=== PATIENT | female | born 1945 | race Caucasian/White ===

== ENCOUNTER → 2023-01-10 | Day surgery (SDC) | payer OTHER | END | disposition home or self-care (01) | LOC: JRADUS-SUR 11:42 | PROVIDERS: ATTEND Internal Medicine | PROC: 0HBU3ZX Excision of Left Breast, Percutaneous Approach, Diagnostic (ICD-10-PCS; principal; 2023-01-10) | DX: C50.912 Malignant neoplasm of unspecified site of left female breast (principal) | CPT/HCPCS: 19083; 77065-TC; 87899; 88305-TC; 88341-TC; 88342-TC; A4648 ==

== ENCOUNTER 2023-03-08 04:40 | Day surgery (SDC) | payer OTHER ==
[2023-03-08 09:00] VITALS: BMI 33.8
[2023-03-08 10:11] LABS: INR 1.1 (0.83-1.09); PROTHROMBIN TIME (PATIENT) 12.8 SEC (9.7-13.0)
[2023-03-08] MEDS ORDERED: SODIUM CHLORIDE 500 ML IV ONE (10:45)
[2023-03-08] MEDS ORDERED: FENTANYL CITRATE/PF 50 MCG/ML VIAL ONE (11:09)
[2023-03-08 12:54] VITALS: RESP 18
[2023-03-08 13:44] VITALS: BP 136/58; PULSE 82; TEMP 98.2
== END 2023-03-08 13:40 ==
LOC: JRADIR 04:40
PROVIDERS: ATTEND Internal Medicine Hematology & Oncology
PROC: 0JH63XZ Insertion of Tunneled Vascular Access Device into Chest Subcutaneous Tissue and Fascia, Percutaneous Approach (ICD-10-PCS; principal; 2023-03-08)
DX: C50.912 Malignant neoplasm of unspecified site of left female breast (principal)
CPT/HCPCS: 36571; C1788; 36415; 36561; 77001-TC-FY; 85610

== ENCOUNTER 2023-03-08 08:26 | Day surgery (SDC) | payer OTHER ==
[~2023-03-08 08:26] MED LIST: CYCLOPHOSPHAMIDE IVPB ONE; DEXAMETHASONE SODIUM PHOSPHATE 10 MG, DIPHENHYDRAMINE 25 MG in SODIUM CHLORIDE 100 ML IVPB ONE; FAMOTIDINE 20 MG/50 ML IVPB 20 MG/50 ML MG IVPB ONE; FOSAPREPITANT DIMEGLUMINE 150 MG in SODIUM CHLORIDE 145 ML IVPB ONE; PACLITAXEL 150 MG in SODIUM CHLORIDE 250 ML IVPB ONE; PALONOSETRON HCL 0.25 MG/5 ML VIAL IVPUSH ONE; PEMBROLIZUMAB 200 MG in SODIUM CHLORIDE 100 ML IV ONE; SODIUM CHLORIDE IVPB ONE
[2023-03-08 09:55] LABS: EPI CELLS 14 /uL (0-25.1); HYALINE CASTS 0 /uL (0-3.1); PH,URINE 5.5 (5.0-8.0); URINE APPEARANCE CLEAR; URINE BACTERIA 66 /uL (0-1359); URINE BILIRUBIN NEGATIVE (NEGATIVE); URINE COLOR YELLOW; URINE GLUCOSE (UA) NEGATIVE (NEGATIVE); URINE KETONE NEGATIVE (NEGATIVE); URINE LEUK ESTERASE NEGATIVE (NEGATIVE); URINE NITRITE NEGATIVE (NEGATIVE); URINE PROTEIN NEGATIVE (NEGATIVE); URINE RBC 29 /uL (0-23.9); URINE UROBILINOGEN 0.2 mg/dL (0.2-1.0); URINE WBC 6 /uL (0-25.8)
[2023-03-08] MEDS ORDERED: FAMOTIDINE 20 MG/50 ML IVPB 20 MG/50 ML MG IVPB ONE (10:00)
[2023-03-08] MEDS ORDERED: PALONOSETRON HCL 0.25 MG/5 ML VIAL IVPUSH ONE (10:00)
[2023-03-08] MEDS ORDERED: DEXAMETHASONE SODIUM PHOSPHATE 10 MG, DIPHENHYDRAMINE 25 MG in SODIUM CHLORIDE 100 ML IVPB ONE (10:00)
[2023-03-08] MEDS ORDERED: FOSAPREPITANT DIMEGLUMINE 150 MG in SODIUM CHLORIDE 145 ML IVPB ONE (10:00)
[2023-03-08 10:02] LABS: EOS % 5.7 % (0-4.5); HEMATOCRIT 36.6 % (32.4-45.2); HEMOGLOBIN 11.9 GM/dL (10.7-15.3); LYMPH % 35.8 % (8-40); MCHC 32.4 g/dl (32.0-36.0); MEAN CELL VOLUME 92.5 fl (80-96); MEAN PLT VOLUME 9.9 fl (7.5-11.1); MONO % 9.6 % (3.8-10.2); NEUT % 47.9 % (42.8-82.8); PLATELET COUNT 247 10^3/uL (134-434); RBC 3.96 M/mm3 (3.60-5.2); RDW 14.7 % (11.6-15.6); WHITE BLOOD COUNT 6.9 K/mm3 (4.0-10.0)
[2023-03-08 10:03] LABS: POTASSIUM 4.3 mmol/L (3.5-5.1)
[2023-03-08 10:05] LABS: ALBUMIN 3.4 g/dl (3.4-5.0); CALCIUM 9.5 mg/dL (8.5-10.1)
[2023-03-08 10:06] LABS: BLOOD UREA NITROGEN 12.3 mg/dL (7-18); MAGNESIUM 2.1 mg/dL (1.8-2.4)
[2023-03-08 10:08] LABS: BILIRUBIN,DIRECT 0.2 mg/dL (0.0-0.2); CREATININE 0.9 mg/dL (0.55-1.3)
[2023-03-08 10:09] LABS: PHOSPHOROUS 2.8 mg/dL (2.5-4.9)
[2023-03-08 10:10] LABS: BILIRUBIN,TOTAL 0.6 mg/dL (0.2-1); TOT PROT 7.9 g/dl (6.4-8.2)
[2023-03-08] MEDS ORDERED: PEMBROLIZUMAB 200 MG in SODIUM CHLORIDE 100 ML IV ONE (10:30)
[2023-03-08] MEDS ORDERED: PACLITAXEL 150 MG in SODIUM CHLORIDE 250 ML IVPB ONE (11:00)
[2023-03-08] MEDS ORDERED: DEXTROSE 5% IVPB ONE (13:00)
[2023-03-08] MEDS ORDERED: WATER IVPB ONE (13:00)
[2023-03-08] MEDS ORDERED: CARBOPLATIN IVPB ONE (13:00)
[2023-03-08 18:22] VITALS: RESP 20; TEMP 98.1
[2023-03-08] MEDS ORDERED: PORTA CATH FLUSH 10 ML IVPUSH PRN (18:30)
[2023-03-08 18:31] VITALS: BP 171/74; PULSE 62
== END 2023-03-08 18:10 | disposition home or self-care (01) ==
LOC: JONCCHEMO 08:26 → J7W 08:28 → JONCCHEMO 18:10
PROVIDERS: ATTEND Internal Medicine Hematology & Oncology
DX: Z51.11 Encounter for antineoplastic chemotherapy (principal); C50.912 Malignant neoplasm of unspecified site of left female breast
CPT/HCPCS: 36415; 80048; 80076; 81003; 83615; 83735; 84100; 84439; 84443; 84481; 85025; 96367; 96375; 96413; 96417; J1453; J2469; J9271

== ENCOUNTER 2023-03-15 08:22 | Day surgery (SDC) | payer OTHER ==
[2023-03-15 09:13] LABS: BASO % 0.8 % (0-2.0); EOS % 6.2 % (0-4.5); HEMOGLOBIN 11.7 GM/dL (10.7-15.3); LYMPH % 41.1 % (8-40); MCH 29.5 pg (25.7-33.7); MCHC 32.5 g/dl (32.0-36.0); MEAN CELL VOLUME 90.8 fl (80-96); MONO % 4.7 % (3.8-10.2); NEUT % 47.2 % (42.8-82.8); PLATELET COUNT 223 10^3/uL (134-434); RBC 3.97 M/mm3 (3.60-5.2); RDW 14.5 % (11.6-15.6); WHITE BLOOD COUNT 5.7 K/mm3 (4.0-10.0)
[2023-03-15 09:25] LABS: POTASSIUM 4.5 mmol/L (3.5-5.1)
[2023-03-15 09:28] LABS: ALBUMIN 3.5 g/dl (3.4-5.0); CALCIUM 9.7 mg/dL (8.5-10.1)
[2023-03-15 09:29] LABS: BLOOD UREA NITROGEN 12.5 mg/dL (7-18)
[2023-03-15 09:31] LABS: BILIRUBIN,DIRECT 0.2 mg/dL (0.0-0.2); CREATININE 0.8 mg/dL (0.55-1.3)
[2023-03-15 09:33] LABS: TOT PROT 7.8 g/dl (6.4-8.2)
[2023-03-15] MEDS ORDERED: DEXAMETHASONE SODIUM PHOSPHATE 4 MG, DIPHENHYDRAMINE 25 MG in SODIUM CHLORIDE 100 ML IVPB ONE (10:00)
[2023-03-15] MEDS ORDERED: FAMOTIDINE 20 MG/50 ML IVPB 20 MG/50 ML MG IVPB ONE (10:00)
[2023-03-15] MEDS ORDERED: PACLITAXEL 150 MG in SODIUM CHLORIDE 250 ML IVPB ONE (10:30)
[2023-03-15] MEDS ORDERED: DEXTROSE 5% IVPB ONE (11:30)
[2023-03-15] MEDS ORDERED: WATER IVPB ONE (11:30)
[2023-03-15] MEDS ORDERED: CARBOPLATIN IVPB ONE (11:30)
[2023-03-15 17:02] VITALS: BP 164/67; PULSE 76; RESP 20; TEMP 98.7
[2023-03-15] MEDS ORDERED: PORTA CATH FLUSH 10 ML IVPUSH PRN (17:05)
== END 2023-03-15 13:05 | disposition home or self-care (01) ==
LOC: J7W 08:22 → JONCCHEMO 08:22
PROVIDERS: ATTEND Internal Medicine Hematology & Oncology
PROC: XW0 New Technology, Anatomical Regions, Introduction (ICD-10-PCS; principal; 2023-03-15)
PROC: 3E04305 Introduction of Other Antineoplastic into Central Vein, Percutaneous Approach (ICD-10-PCS; 2023-03-15)
DX: Z51.11 Encounter for antineoplastic chemotherapy (principal); C50.912 Malignant neoplasm of unspecified site of left female breast
CPT/HCPCS: 36415; 80048; 80076; 85025; 96367; 96413; 96417

== ENCOUNTER 2023-03-22 08:36 | Day surgery (SDC) | payer OTHER ==
[2023-03-22 09:01] LABS: BASO % 1.3 % (0-2.0); EOS % 3.9 % (0-4.5); HEMATOCRIT 34.6 % (32.4-45.2); HEMOGLOBIN 11.1 GM/dL (10.7-15.3); LYMPH % 47.2 % (8-40); MCH 29.2 pg (25.7-33.7); MEAN CELL VOLUME 91.3 fl (80-96); MEAN PLT VOLUME 9.2 fl (7.5-11.1); MONO % 7.9 % (3.8-10.2); NEUT % 39.7 % (42.8-82.8); PLATELET COUNT 264 10^3/uL (134-434); RBC 3.79 M/mm3 (3.60-5.2); RDW 14.7 % (11.6-15.6); WHITE BLOOD COUNT 4.6 K/mm3 (4.0-10.0)
[2023-03-22 09:28] LABS: POTASSIUM 4.1 mmol/L (3.5-5.1)
[2023-03-22 09:29] LABS: ALBUMIN 3.4 g/dl (3.4-5.0); CALCIUM 9.5 mg/dL (8.5-10.1)
[2023-03-22 09:33] LABS: BILIRUBIN,DIRECT 0.2 mg/dL (0.0-0.2); CREATININE 0.9 mg/dL (0.55-1.3)
[2023-03-22 09:35] LABS: BILIRUBIN,TOTAL 0.5 mg/dL (0.2-1); TOT PROT 7.5 g/dl (6.4-8.2)
[2023-03-22] MEDS ORDERED: DEXAMETHASONE SODIUM PHOSPHATE 4 MG, DIPHENHYDRAMINE 25 MG in SODIUM CHLORIDE 100 ML IVPB ONE (10:00)
[2023-03-22] MEDS ORDERED: FAMOTIDINE 20 MG/50 ML IVPB 20 MG/50 ML MG IVPB ONE (10:00)
[2023-03-22] MEDS ORDERED: PACLITAXEL 150 MG in SODIUM CHLORIDE 250 ML IVPB ONE (10:30)
[2023-03-22] MEDS ORDERED: DEXTROSE 5% IVPB ONE (11:30)
[2023-03-22] MEDS ORDERED: CARBOPLATIN IVPB ONE (11:30)
[2023-03-22] MEDS ORDERED: WATER IVPB ONE (11:30)
[2023-03-22 16:57] VITALS: RESP 18; TEMP 98.6
[2023-03-22] MEDS ORDERED: PORTA CATH FLUSH 10 ML IVPUSH PRN (17:11)
[2023-03-22 17:12] VITALS: BP 143/53; PULSE 77
== END 2023-03-22 14:00 | disposition home or self-care (01) ==
LOC: JONCCHEMO 08:36 → J7W 08:36 → JONCCHEMO 14:00
PROVIDERS: ATTEND Internal Medicine Hematology & Oncology
DX: Z51.11 Encounter for antineoplastic chemotherapy (principal); C50.912 Malignant neoplasm of unspecified site of left female breast
CPT/HCPCS: 36415; 80048; 80076; 85025; 96367; 96413; 96417

== ENCOUNTER 2023-03-29 08:20 | Day surgery (SDC) | payer OTHER ==
[2023-03-29 09:09] LABS: BASO % 1.3 % (0-2.0); EOS % 3.2 % (0-4.5); HEMATOCRIT 32.6 % (32.4-45.2); HEMOGLOBIN 10.8 GM/dL (10.7-15.3); LYMPH % 51.2 % (8-40); MCH 29.6 pg (25.7-33.7); MCHC 33.1 g/dl (32.0-36.0); MEAN CELL VOLUME 89.5 fl (80-96); MONO % 6.6 % (3.8-10.2); NEUT % 37.7 % (42.8-82.8); PLATELET COUNT 240 10^3/uL (134-434); RBC 3.64 M/mm3 (3.60-5.2); RDW 14.9 % (11.6-15.6); WHITE BLOOD COUNT 4.1 K/mm3 (4.0-10.0)
[2023-03-29] MEDS ORDERED: FAMOTIDINE 20 MG/50 ML IVPB 20 MG/50 ML MG IVPB ONE (09:30)
[2023-03-29] MEDS ORDERED: DEXAMETHASONE SODIUM PHOSPHATE 10 MG, DIPHENHYDRAMINE 25 MG in SODIUM CHLORIDE 100 ML IVPB ONE (09:30)
[2023-03-29] MEDS ORDERED: PALONOSETRON HCL 0.25 MG/5 ML VIAL IVPUSH ONE (09:30)
[2023-03-29] MEDS ORDERED: FOSAPREPITANT DIMEGLUMINE 150 MG in SODIUM CHLORIDE 145 ML IVPB ONE (09:30)
[2023-03-29 09:32] LABS: POTASSIUM 4.8 mmol/L (3.5-5.1)
[2023-03-29 09:35] LABS: ALBUMIN 3.4 g/dl (3.4-5.0); BLOOD UREA NITROGEN 9.8 mg/dL (7-18); CALCIUM 9.3 mg/dL (8.5-10.1); MAGNESIUM 1.9 mg/dL (1.8-2.4)
[2023-03-29 09:36] LABS: URINE APPEARANCE CLEAR; URINE BILIRUBIN NEGATIVE (NEGATIVE); URINE COLOR YELLOW; URINE GLUCOSE (UA) NEGATIVE (NEGATIVE); URINE KETONE NEGATIVE (NEGATIVE); URINE LEUK ESTERASE NEGATIVE (NEGATIVE); URINE NITRITE NEGATIVE (NEGATIVE); URINE PROTEIN NEGATIVE (NEGATIVE); URINE UROBILINOGEN 0.2 mg/dL (0.2-1.0)
[2023-03-29 09:38] LABS: BILIRUBIN,DIRECT 0.1 mg/dL (0.0-0.2); CREATININE 0.9 mg/dL (0.55-1.3); PHOSPHOROUS 2.6 mg/dL (2.5-4.9)
[2023-03-29 09:40] LABS: BILIRUBIN,TOTAL 0.4 mg/dL (0.2-1); TOT PROT 7.2 g/dl (6.4-8.2)
[2023-03-29] MEDS ORDERED: PEMBROLIZUMAB 200 MG in SODIUM CHLORIDE 100 ML IV ONE (10:00)
[2023-03-29] MEDS ORDERED: PACLITAXEL 150 MG in SODIUM CHLORIDE 250 ML IVPB ONE (10:30)
[2023-03-29] MEDS ORDERED: DEXTROSE 5% IVPB ONE (11:30)
[2023-03-29] MEDS ORDERED: CARBOplatin 135 MG in SODIUM CHLORIDE 250 ML IVPB ONE (11:30)
[2023-03-29] MEDS ORDERED: CARBOPLATIN IVPB ONE (11:30)
[2023-03-29] MEDS ORDERED: WATER IVPB ONE (11:30)
[2023-03-29 15:49] VITALS: BP 143/62; PULSE 78; RESP 18; TEMP 98.5
[2023-03-29] MEDS ORDERED: PORTA CATH FLUSH 10 ML IVPUSH PRN (15:49)
== END 2023-03-29 15:51 | disposition home or self-care (01) ==
LOC: JONCCHEMO 08:20 → J7W 08:21 → JONCCHEMO 15:51
PROVIDERS: ATTEND Internal Medicine Hematology & Oncology
DX: Z51.11 Encounter for antineoplastic chemotherapy (principal); C50.912 Malignant neoplasm of unspecified site of left female breast
CPT/HCPCS: 36415; 80048; 80076; 81003; 83615; 83735; 84100; 84439; 84443; 84481; 85025; 96367; 96375; 96413; 96417; J1453; J2469; J9271

== ENCOUNTER 2023-04-05 09:02 | Day surgery (SDC) | payer OTHER ==
[2023-04-05 09:06] LABS: BASO % 1.3 % (0-2.0); EOS % 2.3 % (0-4.5); HEMATOCRIT 33.6 % (32.4-45.2); HEMOGLOBIN 10.8 GM/dL (10.7-15.3); LYMPH % 52.5 % (8-40); MCH 29.5 pg (25.7-33.7); MCHC 32.2 g/dl (32.0-36.0); MEAN CELL VOLUME 91.6 fl (80-96); MEAN PLT VOLUME 9.5 fl (7.5-11.1); NEUT % 35.9 % (42.8-82.8); PLATELET COUNT 257 10^3/uL (134-434); RBC 3.67 M/mm3 (3.60-5.2); WHITE BLOOD COUNT 4.2 K/mm3 (4.0-10.0)
[2023-04-05 09:15] LABS: POTASSIUM 4.3 mmol/L (3.5-5.1)
[2023-04-05 09:17] LABS: CALCIUM 9.5 mg/dL (8.5-10.1)
[2023-04-05 09:18] LABS: ALBUMIN 3.3 g/dl (3.4-5.0); BLOOD UREA NITROGEN 8.6 mg/dL (7-18)
[2023-04-05 09:20] LABS: BILIRUBIN,DIRECT 0.1 mg/dL (0.0-0.2)
[2023-04-05 09:21] LABS: CREATININE 0.9 mg/dL (0.55-1.3)
[2023-04-05 09:22] LABS: BILIRUBIN,TOTAL 0.5 mg/dL (0.2-1); TOT PROT 7.3 g/dl (6.4-8.2)
[2023-04-05] MEDS ORDERED: FAMOTIDINE 20 MG/50 ML IVPB 20 MG/50 ML MG IVPB ONE (09:30)
[2023-04-05] MEDS ORDERED: DEXAMETHASONE SODIUM PHOSPHATE 4 MG, DIPHENHYDRAMINE 25 MG in SODIUM CHLORIDE 100 ML IVPB ONE (09:30)
[2023-04-05] MEDS ORDERED: PACLITAXEL 150 MG in SODIUM CHLORIDE 250 ML IVPB ONE (10:00)
[2023-04-05] MEDS ORDERED: CARBOplatin 135 MG in SODIUM CHLORIDE 250 ML IVPB ONE (11:00)
[2023-04-05] MEDS ORDERED: PORTA CATH FLUSH 10 ML IVPUSH PRN (17:06)
[2023-04-05 17:07] VITALS: BP 152/72; PULSE 81; RESP 18; TEMP 98.1
== END 2023-04-05 13:35 | disposition home or self-care (01) ==
LOC: JONCCHEMO 09:02 → J7W 09:40 → JONCCHEMO 13:35
PROVIDERS: ATTEND Internal Medicine Hematology & Oncology
DX: Z51.11 Encounter for antineoplastic chemotherapy (principal); C50.912 Malignant neoplasm of unspecified site of left female breast
CPT/HCPCS: 36415; 80048; 80076; 85025; 96367; 96413; 96417

== ENCOUNTER 2023-04-12 08:14 | Day surgery (SDC) | payer OTHER ==
[2023-04-12 08:54] LABS: BASO % 2.1 % (0-2.0); EOS % 2.2 % (0-4.5); HEMATOCRIT 30.8 % (32.4-45.2); HEMOGLOBIN 10.4 GM/dL (10.7-15.3); LYMPH % 47.9 % (8-40); MCH 30.1 pg (25.7-33.7); MCHC 33.7 g/dl (32.0-36.0); MEAN CELL VOLUME 89.3 fl (80-96); MEAN PLT VOLUME 8.2 fl (7.5-11.1); MONO % 10.7 % (3.8-10.2); NEUT % 37.1 % (42.8-82.8); PLATELET COUNT 226 10^3/uL (134-434); RBC 3.45 M/mm3 (3.60-5.2); RDW 15.3 % (11.6-15.6); WHITE BLOOD COUNT 3.3 K/mm3 (4.0-10.0)
[2023-04-12 09:18] LABS: POTASSIUM 4.2 mmol/L (3.5-5.1)
[2023-04-12 09:22] LABS: ALBUMIN 3.3 g/dl (3.4-5.0); BLOOD UREA NITROGEN 8.8 mg/dL (7-18); CALCIUM 9.2 mg/dL (8.5-10.1)
[2023-04-12 09:25] LABS: BILIRUBIN,DIRECT 0.1 mg/dL (0.0-0.2); CREATININE 0.9 mg/dL (0.55-1.3)
[2023-04-12 09:27] LABS: BILIRUBIN,TOTAL 0.4 mg/dL (0.2-1)
[2023-04-12] MEDS ORDERED: DEXAMETHASONE SODIUM PHOSPHATE 4 MG, DIPHENHYDRAMINE 25 MG in SODIUM CHLORIDE 100 ML IVPB ONE (09:30)
[2023-04-12] MEDS ORDERED: FAMOTIDINE 20 MG/50 ML IVPB 20 MG/50 ML MG IVPB ONE (09:30)
[2023-04-12] MEDS ORDERED: PACLITAXEL 150 MG in SODIUM CHLORIDE 250 ML IVPB ONE (10:00)
[2023-04-12 10:25] VITALS: BP 136/56; PULSE 84; RESP 20; TEMP 98.3
[2023-04-12] MEDS ORDERED: PORTA CATH FLUSH 10 ML IVPUSH PRN (10:25)
[2023-04-12] MEDS ORDERED: CARBOplatin 135 MG in SODIUM CHLORIDE 250 ML IVPB ONE (11:00)
== END 2023-04-12 10:00 | disposition home or self-care (01) ==
LOC: JONCCHEMO 08:14 → J7W 08:15 → JONCCHEMO 10:00
PROVIDERS: ATTEND Internal Medicine Hematology & Oncology
PROC: 3E013GC Introduction of Other Therapeutic Substance into Subcutaneous Tissue, Percutaneous Approach (ICD-10-PCS; principal; 2023-04-12)
DX: C50.919 Malignant neoplasm of unspecified site of unspecified female breast (principal); Z53.8 Procedure and treatment not carried out for other reasons
CPT/HCPCS: 36415; 80048; 80076; 85025; 96372

== ENCOUNTER 2023-05-21 08:28 | Day surgery (SDC) | payer OTHER ==
[2023-05-21 09:14] LABS: BASO % 0.6 % (0-2.0); EOS % 10.6 % (0-4.5); HEMATOCRIT 32.6 % (32.4-45.2); HEMOGLOBIN 11.3 GM/dL (10.7-15.3); LYMPH % 36.7 % (8-40); MCH 32.2 pg (25.7-33.7); MCHC 34.7 g/dl (32.0-36.0); MEAN PLT VOLUME 8.5 fl (7.5-11.1); MONO % 9.9 % (3.8-10.2); NEUT % 42.2 % (42.8-82.8); PLATELET COUNT 252 10^3/uL (134-434); RBC 3.51 M/mm3 (3.60-5.2); RDW 16.2 % (11.6-15.6); WHITE BLOOD COUNT 5.6 K/mm3 (4.0-10.0)
[2023-05-21] MEDS ORDERED: PALONOSETRON HCL 0.25 MG/5 ML VIAL IVPUSH ONE (09:30)
[2023-05-21] MEDS ORDERED: DEXAMETHASONE SODIUM PHOSPHATE 4 MG in SODIUM CHLORIDE 50 ML IVPB ONE (09:30)
[2023-05-21 09:35] LABS: POTASSIUM 4.1 mmol/L (3.5-5.1)
[2023-05-21 09:36] LABS: CALCIUM 9.3 mg/dL (8.5-10.1)
[2023-05-21 09:37] LABS: ALBUMIN 3.4 g/dl (3.4-5.0); BLOOD UREA NITROGEN 11.2 mg/dL (7-18)
[2023-05-21 09:39] LABS: BILIRUBIN,DIRECT 0.2 mg/dL (0.0-0.2)
[2023-05-21 09:41] LABS: BILIRUBIN,TOTAL 0.9 mg/dL (0.2-1); TOT PROT 7.6 g/dl (6.4-8.2)
[2023-05-21] MEDS ORDERED: PEMBROLIZUMAB 200 MG in SODIUM CHLORIDE 50 ML IV ONE (10:00)
[2023-05-21] MEDS ORDERED: SODIUM CHLORIDE IVPB ONE ×3 (10:30→11:00)
[2023-05-21] MEDS ORDERED: CYCLOPHOSPHAMIDE IVPB ONE ×2 (10:30)
[2023-05-21] MEDS ORDERED: CARBOPLATIN IVPB ONE (11:00)
[2023-05-21 16:28] VITALS: BP 137/59; PULSE 73; RESP 20; TEMP 97.9
[2023-05-21] MEDS ORDERED: PORTA CATH FLUSH 10 ML IVPUSH PRN (16:28)
== END 2023-05-21 14:00 | disposition home or self-care (01) ==
LOC: JONCCHEMO 08:28 → J7W 08:29 → JONCCHEMO 14:00
PROVIDERS: ATTEND Internal Medicine Hematology & Oncology
DX: Z51.11 Encounter for antineoplastic chemotherapy (principal); C50.912 Malignant neoplasm of unspecified site of left female breast
CPT/HCPCS: 36415; 80048; 80076; 85025; 96367; 96375; 96413; 96417; J2469; J9070; J9271

== ENCOUNTER 2023-06-11 08:18 | Day surgery (SDC) | payer OTHER ==
[2023-06-11] MEDS ORDERED: PALONOSETRON HCL 0.25 MG/5 ML VIAL IVPUSH ONE (09:30)
[2023-06-11] MEDS ORDERED: DEXAMETHASONE SODIUM PHOSPHATE 10 MG, DIPHENHYDRAMINE 25 MG in SODIUM CHLORIDE 100 ML IVPB ONE (09:30)
[2023-06-11] MEDS ORDERED: FOSAPREPITANT DIMEGLUMINE 150 MG in SODIUM CHLORIDE 145 ML IVPB ONE (09:30)
[2023-06-11 09:45] LABS: BASO % 1.2 % (0-2.0); EOS % 9.7 % (0-4.5); HEMATOCRIT 32.9 % (32.4-45.2); HEMOGLOBIN 10.7 GM/dL (10.7-15.3); LYMPH % 36.1 % (8-40); MCH 30.4 pg (25.7-33.7); MCHC 32.5 g/dl (32.0-36.0); MEAN CELL VOLUME 93.6 fl (80-96); MEAN PLT VOLUME 8.7 fl (7.5-11.1); MONO % 10.9 % (3.8-10.2); NEUT % 42.1 % (42.8-82.8); PLATELET COUNT 272 10^3/uL (134-434); RBC 3.51 M/mm3 (3.60-5.2); RDW 16.1 % (11.6-15.6); WHITE BLOOD COUNT 5.7 K/mm3 (4.0-10.0)
[2023-06-11 09:50] LABS: EPI CELLS >36 /uL (0-25.1); HYALINE CASTS 1 /uL (0-3.1); URINE BACTERIA 69 /uL (0-1359); URINE RBC 16 /uL (0-23.9); URINE WBC 13 /uL (0-25.8)
[2023-06-11] MEDS ORDERED: PEMBROLIZUMAB 200 MG in SODIUM CHLORIDE 50 ML IV ONE (10:00)
[2023-06-11 10:06] LABS: POTASSIUM 4.1 mmol/L (3.5-5.1)
[2023-06-11 10:09] LABS: CALCIUM 9.4 mg/dL (8.5-10.1)
[2023-06-11 10:10] LABS: ALBUMIN 3.2 g/dl (3.4-5.0); BLOOD UREA NITROGEN 9.7 mg/dL (7-18); MAGNESIUM 2.1 mg/dL (1.8-2.4)
[2023-06-11 10:12] LABS: BILIRUBIN,DIRECT 0.1 mg/dL (0.0-0.2)
[2023-06-11 10:13] LABS: CREATININE 0.8 mg/dL (0.55-1.3); PHOSPHOROUS 2.9 mg/dL (2.5-4.9)
[2023-06-11 10:14] LABS: BILIRUBIN,TOTAL 0.6 mg/dL (0.2-1); TOT PROT 7.2 g/dl (6.4-8.2)
[2023-06-11 10:15] LABS: URINE APPEARANCE Clear; URINE BILIRUBIN Negative (NEGATIVE); URINE COLOR Yellow; URINE GLUCOSE (UA) Negative (NEGATIVE); URINE KETONE Negative (NEGATIVE); URINE LEUK ESTERASE Negative (NEGATIVE); URINE NITRITE Negative (NEGATIVE); URINE PROTEIN Negative (NEGATIVE); URINE UROBILINOGEN 0.2 mg/dL (0.2-1.0)
[2023-06-11] MEDS ORDERED: FAMOTIDINE 20 MG/50 ML IVPB 20 MG/50 ML MG IVPB ONE (10:15)
[2023-06-11] MEDS ORDERED: CARBOplatin 135 MG in SODIUM CHLORIDE 250 ML IVPB ONE (10:30)
[2023-06-11] MEDS ORDERED: CYCLOPHOSPHAMIDE IVPB ONE (11:00)
[2023-06-11] MEDS ORDERED: SODIUM CHLORIDE IVPB ONE (11:00)
[2023-06-11 15:44] VITALS: TEMP 97.8
[2023-06-11 15:56] VITALS: BP 141/56; PULSE 69; RESP 18
[2023-06-11] MEDS ORDERED: PORTA CATH FLUSH 10 ML IVPUSH PRN (15:56)
== END 2023-06-11 14:45 | disposition home or self-care (01) ==
LOC: JONCCHEMO 08:18 → J7W 08:19 → JONCCHEMO 14:45
PROVIDERS: ATTEND Internal Medicine Hematology & Oncology
DX: Z51.11 Encounter for antineoplastic chemotherapy (principal); C50.912 Malignant neoplasm of unspecified site of left female breast
CPT/HCPCS: 36415; 80048; 80076; 81003; 83615; 83735; 84100; 84439; 84443; 84481; 85025; 96367; 96375; 96413; 96417; J1453; J2469; J9070; J9271

== ENCOUNTER 2023-06-18 08:29 | Day surgery (SDC) | payer OTHER ==
[2023-06-18 09:43] LABS: BASO % 0.9 % (0-2.0); EOS % 7.1 % (0-4.5); HEMATOCRIT 32.3 % (32.4-45.2); HEMOGLOBIN 10.6 GM/dL (10.7-15.3); LYMPH % 33.5 % (8-40); MCH 30.7 pg (25.7-33.7); MCHC 32.7 g/dl (32.0-36.0); MEAN PLT VOLUME 8.9 fl (7.5-11.1); MONO % 12.1 % (3.8-10.2); NEUT % 46.4 % (42.8-82.8); PLATELET COUNT 221 10^3/uL (134-434); RBC 3.44 M/mm3 (3.60-5.2); RDW 15.9 % (11.6-15.6)
[2023-06-18 09:57] LABS: CALCIUM 9.8 mg/dL (8.5-10.1)
[2023-06-18 09:58] LABS: ALBUMIN 3.3 g/dl (3.4-5.0); BLOOD UREA NITROGEN 10.2 mg/dL (7-18)
[2023-06-18 10:00] LABS: CREATININE 0.8 mg/dL (0.55-1.3)
[2023-06-18] MEDS ORDERED: DEXAMETHASONE SODIUM PHOSPHATE 4 MG, DIPHENHYDRAMINE 25 MG in SODIUM CHLORIDE 100 ML IVPB ONE (10:00)
[2023-06-18] MEDS ORDERED: FAMOTIDINE 20 MG/50 ML IVPB 20 MG/50 ML MG IVPB ONE (10:00)
[2023-06-18] MEDS ORDERED: PALONOSETRON HCL 0.25 MG/5 ML VIAL IVPUSH ONE (10:00)
[2023-06-18 10:01] LABS: BILIRUBIN,DIRECT 0.1 mg/dL (0.0-0.2)
[2023-06-18 10:03] LABS: BILIRUBIN,TOTAL 0.5 mg/dL (0.2-1); TOT PROT 7.1 g/dl (6.4-8.2)
[2023-06-18] MEDS ORDERED: CYCLOPHOSPHAMIDE IVPB ONE (10:30)
[2023-06-18] MEDS ORDERED: SODIUM CHLORIDE IVPB ONE (10:30)
[2023-06-18] MEDS ORDERED: CARBOPLATIN IVPB ONE (11:00)
[2023-06-18] MEDS ORDERED: WATER IVPB ONE (11:00)
[2023-06-18] MEDS ORDERED: DEXTROSE 5% IVPB ONE (11:00)
[2023-06-18 14:46] VITALS: TEMP 97.7
[2023-06-18 14:52] VITALS: BP 116/47; PULSE 64; RESP 18
[2023-06-18] MEDS ORDERED: PORTA CATH FLUSH 10 ML IVPUSH PRN (14:52)
== END 2023-06-18 13:45 | disposition home or self-care (01) ==
LOC: J7W 08:29 → JONCCHEMO 08:29
PROVIDERS: ATTEND Internal Medicine Hematology & Oncology
PROC: 3E04305 Introduction of Other Antineoplastic into Central Vein, Percutaneous Approach (ICD-10-PCS; principal; 2023-06-18)
PROC: 3E043GC Introduction of Other Therapeutic Substance into Central Vein, Percutaneous Approach (ICD-10-PCS; 2023-06-18)
DX: Z51.11 Encounter for antineoplastic chemotherapy (principal); C50.912 Malignant neoplasm of unspecified site of left female breast
CPT/HCPCS: 36415; 80048; 80076; 85025; 96367; 96375; 96413; 96417; J2469; J9070

== ENCOUNTER → 2023-08-20 | Day surgery (SDC) | payer OTHER | END | disposition home or self-care (01) | LOC: JRADUS-SUR 11:30 | PROVIDERS: ATTEND Surgery Surgical Oncology | PROC: BH01ZZZ Plain Radiography of Left Breast (ICD-10-PCS; principal; 2023-08-20) | DX: C50.912 Malignant neoplasm of unspecified site of left female breast (principal) | CPT/HCPCS: 19281; A4648 ==

== ENCOUNTER 2023-08-22 04:14 | Day surgery (SDC) | payer OTHER ==
[2023-08-07 10:20] VITALS: BMI 30.7
[~2023-08-22 04:14] MED LIST changes: -CYCLOPHOSPHAMIDE IVPB ONE; -DEXAMETHASONE SODIUM PHOSPHATE 10 MG, DIPHENHYDRAMINE 25 MG in SODIUM CHLORIDE 100 ML IVPB ONE; -FAMOTIDINE 20 MG/50 ML IVPB 20 MG/50 ML MG IVPB ONE; -FOSAPREPITANT DIMEGLUMINE 150 MG in SODIUM CHLORIDE 145 ML IVPB ONE; -PACLITAXEL 150 MG in SODIUM CHLORIDE 250 ML IVPB ONE; -PALONOSETRON HCL 0.25 MG/5 ML VIAL IVPUSH ONE; -PEMBROLIZUMAB 200 MG in SODIUM CHLORIDE 100 ML IV ONE; -SODIUM CHLORIDE IVPB ONE; +ceFAZolin SODIUM 1 GM VIAL IVPB ONE
[2023-08-22] MEDS ORDERED: BUPIVACAINE HCL/PF 0.5% (5MG/ML) 10 ML VIAL ONE (07:19)
[2023-08-22] MEDS ORDERED: LIDOCAINE 1%/EPI 1:100000 (20 ML MULTI DOSE VIAL) ONE (07:19)
[2023-08-22] MEDS ORDERED: BENZOIN/ALOE VERA/STORAX/TOLU 58 ML BOTTLE ONE (07:19)
[2023-08-22] MEDS ORDERED: ONDANSETRON 4 MG/2 ML VIAL ONE (09:01)
[2023-08-22] MEDS ORDERED: DEXAMETHASONE SOD PHOSPHATE 4 MG/1 ML VIAL ONE (09:01)
[2023-08-22] MEDS ORDERED: PROPOFOL 20 ML ONE (09:02)
[2023-08-22] MEDS ORDERED: ACETAMINOPHEN INJECTION 100 ML IVPB ONE (09:17)
[2023-08-22] MEDS ORDERED: ePHEDrine SULFATE 50 MG/1 ML AMPULE ONE (09:23)
[2023-08-22] MEDS ORDERED: PHENYLEPHRINE HCL 10 MG/1 ML SINGLE DOSE VIAL ONE (09:23)
[2023-08-22] MEDS ORDERED: ceFAZolin SODIUM 1 GM VIAL IVPB ONE (10:08)
[2023-08-22] MEDS ORDERED: ONDANSETRON 4 MG/2 ML VIAL IVPUSH PRN (11:18)
[2023-08-22] MEDS ORDERED: LACTATED RINGERS SOLUTION 1,000 ML IV SCH (11:30)
[2023-08-22 12:47] VITALS: RESP 20
[2023-08-22 13:47] VITALS: BP 126/70; PULSE 65; TEMP 97.8
== END 2023-08-22 14:49 | disposition home or self-care (01) ==
LOC: JASU-SURG 04:14
PROVIDERS: ATTEND Surgery Surgical Oncology
PROC: 0HBU0ZZ Excision of Left Breast, Open Approach (ICD-10-PCS; principal; 2023-08-22 09:30)
PROC: 07B60ZX Excision of Left Axillary Lymphatic, Open Approach, Diagnostic (ICD-10-PCS; 2023-08-22 09:30)
DX: C50.912 Malignant neoplasm of unspecified site of left female breast (principal)
CPT/HCPCS: 76098-TC-FY; 78195-TC; 88307-TC; 94760; A9541; J0131

== ENCOUNTER 2023-10-25 08:12 | Day surgery (SDC) | payer OTHER ==
[2023-10-25 08:50] LABS: BASO % 1.1 % (0-2.0); HEMATOCRIT 34.7 % (32.4-45.2); HEMOGLOBIN 11.7 GM/dL (10.7-15.3); LYMPH % 30.5 % (8-40); MCH 30.2 pg (25.7-33.7); MCHC 33.6 g/dl (32.0-36.0); MEAN CELL VOLUME 89.9 fl (80-96); MEAN PLT VOLUME 8.6 fl (7.5-11.1); MONO % 12.3 % (3.8-10.2); NEUT % 44.1 % (42.8-82.8); PLATELET COUNT 201 10^3/uL (134-434); RBC 3.86 M/mm3 (3.60-5.2); RDW 15.1 % (11.6-15.6); WHITE BLOOD COUNT 4.4 K/mm3 (4.0-10.0)
[2023-10-25 08:53] LABS: EPI CELLS 19 /uL (0-25.1); HYALINE CASTS 0 /uL (0-3.1); PH,URINE 5.5 (5.0-8.0); URINE APPEARANCE CLEAR; URINE BACTERIA 37 /uL (0-1359); URINE BILIRUBIN NEGATIVE (NEGATIVE); URINE COLOR YELLOW; URINE GLUCOSE (UA) NEGATIVE (NEGATIVE); URINE KETONE NEGATIVE (NEGATIVE); URINE LEUK ESTERASE NEGATIVE (NEGATIVE); URINE NITRITE NEGATIVE (NEGATIVE); URINE PROTEIN NEGATIVE (NEGATIVE); URINE RBC 22 /uL (0-23.9); URINE UROBILINOGEN 0.2 mg/dL (0.2-1.0); URINE WBC 10 /uL (0-25.8)
[2023-10-25 09:17] LABS: POTASSIUM 4.5 mmol/L (3.5-5.1)
[2023-10-25 09:19] LABS: CALCIUM 9.8 mg/dL (8.5-10.1)
[2023-10-25 09:20] LABS: ALBUMIN 3.4 g/dl (3.4-5.0); MAGNESIUM 2.1 mg/dL (1.8-2.4)
[2023-10-25 09:21] LABS: BLOOD UREA NITROGEN 13.8 mg/dL (7-18)
[2023-10-25 09:22] LABS: BILIRUBIN,DIRECT 0.2 mg/dL (0.0-0.2)
[2023-10-25 09:23] LABS: CREATININE 0.8 mg/dL (0.55-1.3); PHOSPHOROUS 3.4 mg/dL (2.5-4.9)
[2023-10-25 09:24] LABS: BILIRUBIN,TOTAL 0.6 mg/dL (0.2-1); TOT PROT 7.5 g/dl (6.4-8.2)
[2023-10-25] MEDS: PEMBROLIZUMAB 200 MG in SODIUM CHLORIDE 100 ML IV ONE (10:28)
[2023-10-25 15:10] VITALS: BP 155/67; PULSE 72; RESP 20; TEMP 98
[2023-10-25] MEDS: PORTA CATH FLUSH 10 ML IVPUSH PRN (15:15)
== END 2023-10-25 12:05 | disposition home or self-care (01) ==
LOC: JONCCHEMO 08:12 → J7W 08:13 → JONCCHEMO 12:05
PROVIDERS: ATTEND Internal Medicine Hematology & Oncology
DX: Z51.11 Encounter for antineoplastic chemotherapy (principal); C50.912 Malignant neoplasm of unspecified site of left female breast
CPT/HCPCS: 36415; 80048; 80076; 81003; 83615; 83735; 84100; 84439; 84443; 84481; 85025; 96413; J9271

== ENCOUNTER 2023-11-15 08:18 | Day surgery (SDC) | payer OTHER ==
[2023-11-15 08:40] LABS: URINE APPEARANCE CLEAR; URINE BILIRUBIN NEGATIVE (NEGATIVE); URINE COLOR YELLOW; URINE GLUCOSE (UA) NEGATIVE (NEGATIVE); URINE KETONE NEGATIVE (NEGATIVE); URINE LEUK ESTERASE NEGATIVE (NEGATIVE); URINE NITRITE NEGATIVE (NEGATIVE); URINE PROTEIN NEGATIVE (NEGATIVE); URINE UROBILINOGEN 0.2 mg/dL (0.2-1.0)
[2023-11-15 08:43] LABS: BASO % 0.8 % (0-2.0); EOS % 7.7 % (0-4.5); HEMATOCRIT 34.7 % (32.4-45.2); HEMOGLOBIN 11.4 GM/dL (10.7-15.3); LYMPH % 19.9 % (8-40); MCH 29.7 pg (25.7-33.7); MCHC 32.9 g/dl (32.0-36.0); MEAN CELL VOLUME 90.3 fl (80-96); MEAN PLT VOLUME 8.2 fl (7.5-11.1); MONO % 12.5 % (3.8-10.2); NEUT % 59.1 % (42.8-82.8); PLATELET COUNT 211 10^3/uL (134-434); RBC 3.84 M/mm3 (3.60-5.2); RDW 15.2 % (11.6-15.6); WHITE BLOOD COUNT 5.3 K/mm3 (4.0-10.0)
[2023-11-15 09:48] LABS: POTASSIUM 4.1 mmol/L (3.5-5.1)
[2023-11-15 09:50] LABS: CALCIUM 9.6 mg/dL (8.5-10.1)
[2023-11-15 09:51] LABS: ALBUMIN 3.4 g/dl (3.4-5.0); BLOOD UREA NITROGEN 11.3 mg/dL (7-18)
[2023-11-15 09:54] LABS: BILIRUBIN,DIRECT 0.2 mg/dL (0.0-0.2); CREATININE 0.9 mg/dL (0.55-1.3); PHOSPHOROUS 3.2 mg/dL (2.5-4.9)
[2023-11-15 09:55] LABS: TOT PROT 7.2 g/dl (6.4-8.2)
[2023-11-15 09:56] LABS: BILIRUBIN,TOTAL 0.8 mg/dL (0.2-1)
[2023-11-15] MEDS: PEMBROLIZUMAB 200 MG in SODIUM CHLORIDE 100 ML IV ONE (11:05)
[2023-11-15] MEDS: PORTA CATH FLUSH 10 ML IVPUSH PRN (11:40)
[2023-11-15 13:35] VITALS: BP 148/59; PULSE 75; RESP 18; TEMP 97.7
== END 2023-11-15 11:45 | disposition home or self-care (01) ==
LOC: JONCCHEMO 08:18 → J7W 08:19 → JONCCHEMO 11:45
PROVIDERS: ATTEND Internal Medicine Hematology & Oncology
DX: Z51.11 Encounter for antineoplastic chemotherapy (principal); C50.912 Malignant neoplasm of unspecified site of left female breast
CPT/HCPCS: 36415; 80048; 80076; 81003; 83615; 83735; 84100; 84439; 84443; 84481; 85025; 96413; J9271

== ENCOUNTER 2023-12-06 08:13 | Day surgery (SDC) | payer OTHER ==
[2023-12-06 09:08] LABS: BASO % 0.9 % (0-2.0); EOS % 10.4 % (0-4.5); HEMOGLOBIN 11.5 GM/dL (10.7-15.3); MCH 29.5 pg (25.7-33.7); MEAN CELL VOLUME 89.4 fl (80-96); MEAN PLT VOLUME 8.9 fl (7.5-11.1); MONO % 12.7 % (3.8-10.2); PLATELET COUNT 201 10^3/uL (134-434); RBC 3.92 M/mm3 (3.60-5.2); RDW 15.9 % (11.6-15.6); WHITE BLOOD COUNT 4.4 K/mm3 (4.0-10.0)
[2023-12-06 09:09] LABS: EPI CELLS >36 /uL (0-25.1); HYALINE CASTS 1 /uL (0-3.1); PH,URINE 6.5 (5.0-8.0); URINE APPEARANCE CLOUDY; URINE BACTERIA 432 /uL (0-1359); URINE BILIRUBIN NEGATIVE (NEGATIVE); URINE COLOR YELLOW; URINE GLUCOSE (UA) NEGATIVE (NEGATIVE); URINE KETONE NEGATIVE (NEGATIVE); URINE LEUK ESTERASE 1+ (NEGATIVE); URINE NITRITE NEGATIVE (NEGATIVE); URINE PROTEIN NEGATIVE (NEGATIVE); URINE RBC 53 /uL (0-23.9); URINE UROBILINOGEN 0.2 mg/dL (0.2-1.0); URINE WBC 36 /uL (0-25.8)
[2023-12-06 09:41] VITALS: RESP 20; TEMP 98.2
[2023-12-06] MEDS: PEMBROLIZUMAB 200 MG in SODIUM CHLORIDE 100 ML IV ONE (09:54)
[2023-12-06 10:21] LABS: POTASSIUM 4.1 mmol/L (3.5-5.1)
[2023-12-06 10:24] LABS: CALCIUM 9.4 mg/dL (8.5-10.1)
[2023-12-06 10:25] LABS: ALBUMIN 3.3 g/dl (3.4-5.0); BLOOD UREA NITROGEN 10.4 mg/dL (7-18)
[2023-12-06] MEDS: PORTA CATH FLUSH 10 ML IVPUSH PRN (10:25)
[2023-12-06 10:27] LABS: BILIRUBIN,DIRECT 0.2 mg/dL (0.0-0.2)
[2023-12-06 10:28] LABS: CREATININE 0.9 mg/dL (0.55-1.3); PHOSPHOROUS 2.9 mg/dL (2.5-4.9)
[2023-12-06 10:29] LABS: BILIRUBIN,TOTAL 0.8 mg/dL (0.2-1); TOT PROT 7.4 g/dl (6.4-8.2)
[2023-12-06 15:52] VITALS: BP 132/66; PULSE 72
== END 2023-12-06 10:30 | disposition home or self-care (01) ==
LOC: JONCCHEMO 08:13 → J7W 08:18 → JONCCHEMO 10:30
PROVIDERS: ATTEND Internal Medicine Hematology & Oncology
DX: Z51.11 Encounter for antineoplastic chemotherapy (principal); C50.912 Malignant neoplasm of unspecified site of left female breast
CPT/HCPCS: 36415; 80048; 80076; 81003; 83615; 83735; 84100; 84439; 84443; 84481; 85025; 96413; J9271

== ENCOUNTER 2023-12-27 08:20 | Day surgery (SDC) | payer OTHER ==
[2023-12-27 09:00] LABS: EOS % 7.9 % (0-4.5); HEMATOCRIT 35.9 % (32.4-45.2); HEMOGLOBIN 11.9 GM/dL (10.7-15.3); LYMPH % 37.1 % (8-40); MCH 29.7 pg (25.7-33.7); MEAN PLT VOLUME 8.4 fl (7.5-11.1); MONO % 12.5 % (3.8-10.2); NEUT % 41.5 % (42.8-82.8); PLATELET COUNT 243 10^3/uL (134-434); RBC 3.99 M/mm3 (3.60-5.2); WHITE BLOOD COUNT 4.7 K/mm3 (4.0-10.0)
[2023-12-27 09:04] LABS: EPI CELLS >36 /uL (0-25.1); HYALINE CASTS 0 /uL (0-3.1); PH,URINE 6.5 (5.0-8.0); URINE APPEARANCE CLEAR; URINE BACTERIA 23 /uL (0-1359); URINE BILIRUBIN NEGATIVE (NEGATIVE); URINE COLOR YELLOW; URINE GLUCOSE (UA) NEGATIVE (NEGATIVE); URINE KETONE NEGATIVE (NEGATIVE); URINE LEUK ESTERASE TRACE (NEGATIVE); URINE NITRITE NEGATIVE (NEGATIVE); URINE PROTEIN NEGATIVE (NEGATIVE); URINE RBC 38 /uL (0-23.9); URINE UROBILINOGEN 0.2 mg/dL (0.2-1.0); URINE WBC 23 /uL (0-25.8)
[2023-12-27 09:21] LABS: CALCIUM 9.8 mg/dL (8.5-10.1)
[2023-12-27 09:22] LABS: ALBUMIN 3.5 g/dl (3.4-5.0); BLOOD UREA NITROGEN 12.9 mg/dL (7-18); MAGNESIUM 2.1 mg/dL (1.8-2.4)
[2023-12-27 09:25] LABS: BILIRUBIN,DIRECT 0.2 mg/dL (0.0-0.2); PHOSPHOROUS 3.5 mg/dL (2.5-4.9)
[2023-12-27 09:26] LABS: CREATININE 0.9 mg/dL (0.55-1.3)
[2023-12-27 09:27] LABS: TOT PROT 7.4 g/dl (6.4-8.2)
[2023-12-27] MEDS: PEMBROLIZUMAB 200 MG in SODIUM CHLORIDE 100 ML IV ONE (10:03)
[2023-12-27] MEDS: PORTA CATH FLUSH 10 ML IVPUSH PRN (10:40)
[2023-12-27 10:46] VITALS: PULSE 69; RESP 20; TEMP 98
[2023-12-27 10:56] VITALS: BP 127/52
== END 2023-12-27 11:10 | disposition home or self-care (01) ==
LOC: JONCCHEMO 08:20 → J7W 08:21 → JONCCHEMO 11:10
PROVIDERS: ATTEND Internal Medicine Hematology & Oncology
DX: Z51.11 Encounter for antineoplastic chemotherapy (principal); C50.912 Malignant neoplasm of unspecified site of left female breast
CPT/HCPCS: 36415; 80048; 80076; 81003; 83615; 83735; 84100; 84439; 84443; 84481; 85025; 96413; J9271

== ENCOUNTER 2024-01-17 09:04 | Day surgery (SDC) | payer OTHER ==
[2024-01-17 09:06] LABS: BASO % 0.9 % (0-2.0); HEMATOCRIT 35.4 % (32.4-45.2); HEMOGLOBIN 11.4 GM/dL (10.7-15.3); MCH 28.8 pg (25.7-33.7); MCHC 32.1 g/dl (32.0-36.0); MEAN CELL VOLUME 89.6 fl (80-96); MEAN PLT VOLUME 8.2 fl (7.5-11.1); MONO % 10.6 % (3.8-10.2); NEUT % 53.5 % (42.8-82.8); PLATELET COUNT 237 10^3/uL (134-434); RBC 3.95 M/mm3 (3.60-5.2); WHITE BLOOD COUNT 6.1 K/mm3 (4.0-10.0)
[2024-01-17 09:07] LABS: PH,URINE 6.5 (5.0-8.0); URINE APPEARANCE Clear; URINE BILIRUBIN Negative (NEGATIVE); URINE COLOR Yellow; URINE GLUCOSE (UA) Negative (NEGATIVE); URINE KETONE Negative (NEGATIVE); URINE LEUK ESTERASE Negative (NEGATIVE); URINE NITRITE Negative (NEGATIVE); URINE PROTEIN Negative (NEGATIVE); URINE UROBILINOGEN 0.2 mg/dL (0.2-1.0)
[2024-01-17 09:24] LABS: EPI CELLS 21 /uL (0-25.1); HYALINE CASTS 0 /uL (0-3.1); URINE BACTERIA 23 /uL (0-1359); URINE RBC 15 /uL (0-23.9); URINE WBC 7 /uL (0-25.8)
[2024-01-17 09:25] LABS: CHLORIDE 110 mmol/L (98-107); POTASSIUM 4.2 mmol/L (3.5-5.1); SODIUM 142 mmol/L (136-145)
[2024-01-17 09:28] LABS: ALBUMIN 3.3 g/dl (3.4-5.0); ANION GAP 6 mmol/L (4-13); BLOOD UREA NITROGEN 12.2 mg/dL (7-18); CALCIUM 9.5 mg/dL (8.5-10.1); CO2 27 mmol/L (21-32); GLUCOSE,RANDOM 106 mg/dL (74-106)
[2024-01-17 09:31] LABS: CREATININE 0.8 mg/dL (0.55-1.3); PHOSPHOROUS 3.1 mg/dL (2.5-4.9); SGOT/AST 12 U/L (15-37); SGPT/ALT 22 U/L (13-61)
[2024-01-17 09:32] LABS: LDH 150 U/L (84-246)
[2024-01-17 09:33] LABS: BILIRUBIN,TOTAL 0.6 mg/dL (0.2-1); TOT PROT 7.2 g/dl (6.4-8.2)
[2024-01-17 09:35] LABS: ALK PHOS 46 U/L (45-117)
[2024-01-17 09:41] LABS: BILIRUBIN,DIRECT 0.2 mg/dL (0.0-0.2)
[2024-01-17] MEDS: PEMBROLIZUMAB 200 MG in SODIUM CHLORIDE 100 ML IV ONE (10:22)
[2024-01-17 11:05] VITALS: RESP 20; TEMP 97.8
[2024-01-17] MEDS: PORTA CATH FLUSH 10 ML IVPUSH PRN (11:05)
[2024-01-17 13:24] VITALS: BP 145/54; PULSE 74
== END 2024-01-17 11:30 | disposition home or self-care (01) ==
LOC: JONCCHEMO 09:04 → J7W 09:04 → JONCCHEMO 11:30
PROVIDERS: ATTEND Internal Medicine Hematology & Oncology
DX: Z51.11 Encounter for antineoplastic chemotherapy (principal); C50.912 Malignant neoplasm of unspecified site of left female breast
CPT/HCPCS: 36415; 80048; 80076; 81003; 83615; 83735; 84100; 84439; 84443; 84481; 85025; 96413; J9271

== ENCOUNTER 2024-02-07 08:18 | Day surgery (SDC) | payer OTHER ==
[2024-02-07 08:47] LABS: BASO % 0.8 % (0-2.0); EOS % 8.9 % (0-4.5); HEMATOCRIT 35.1 % (32.4-45.2); HEMOGLOBIN 11.7 GM/dL (10.7-15.3); MCH 29.9 pg (25.7-33.7); MCHC 33.5 g/dl (32.0-36.0); MEAN CELL VOLUME 89.4 fl (80-96); MEAN PLT VOLUME 8.2 fl (7.5-11.1); MONO % 10.7 % (3.8-10.2); NEUT % 42.6 % (42.8-82.8); PLATELET COUNT 227 10^3/uL (134-434); RBC 3.93 M/mm3 (3.60-5.2); RDW 15.3 % (11.6-15.6); WHITE BLOOD COUNT 4.8 K/mm3 (4.0-10.0)
[2024-02-07 09:06] LABS: CHLORIDE 107 mmol/L (98-107); SODIUM 142 mmol/L (136-145)
[2024-02-07 09:08] LABS: CALCIUM 9.6 mg/dL (8.5-10.1)
[2024-02-07 09:09] LABS: ALBUMIN 3.5 g/dl (3.4-5.0); ANION GAP 6 mmol/L (4-13); BLOOD UREA NITROGEN 13.2 mg/dL (7-18); CO2 29 mmol/L (21-32); GLUCOSE,RANDOM 100 mg/dL (74-106); MAGNESIUM 2.1 mg/dL (1.8-2.4)
[2024-02-07 09:11] LABS: BILIRUBIN,DIRECT 0.2 mg/dL (0.0-0.2)
[2024-02-07 09:12] LABS: CREATININE 0.8 mg/dL (0.55-1.3); PHOSPHOROUS 3.3 mg/dL (2.5-4.9); SGPT/ALT 18 U/L (13-61)
[2024-02-07 09:13] LABS: BILIRUBIN,TOTAL 0.8 mg/dL (0.2-1); TOT PROT 7.6 g/dl (6.4-8.2)
[2024-02-07 09:14] LABS: LDH 165 U/L (84-246)
[2024-02-07 09:15] LABS: ALK PHOS 46 U/L (45-117)
[2024-02-07 09:17] LABS: SGOT/AST 10 U/L (15-37)
[2024-02-07] MEDS: PEMBROLIZUMAB 200 MG in SODIUM CHLORIDE 100 ML IV ONE (10:19)
[2024-02-07 16:04] VITALS: BP 123/54; PULSE 66; RESP 20; TEMP 97.9
== END 2024-02-07 11:10 | disposition home or self-care (01) ==
LOC: JONCCHEMO 08:18 → J7W 08:19 → JONCCHEMO 11:10
PROVIDERS: ATTEND Internal Medicine Hematology & Oncology
DX: Z51.11 Encounter for antineoplastic chemotherapy (principal); C50.912 Malignant neoplasm of unspecified site of left female breast
CPT/HCPCS: 36415; 80048; 80076; 83615; 83735; 84100; 84439; 84443; 84481; 85025; 96413; J9271

== ENCOUNTER 2024-02-28 07:43 | Day surgery (SDC) | payer OTHER ==
[2024-02-28 08:31] LABS: BASO % 1.7 % (0-2.0); HEMATOCRIT 33.6 % (32.4-45.2); HEMOGLOBIN 11.1 GM/dL (10.7-15.3); LYMPH % 35.3 % (8-40); MCH 29.9 pg (25.7-33.7); MCHC 33.1 g/dl (32.0-36.0); MEAN CELL VOLUME 90.2 fl (80-96); MEAN PLT VOLUME 8.6 fl (7.5-11.1); MONO % 13.2 % (3.8-10.2); NEUT % 39.8 % (42.8-82.8); PLATELET COUNT 194 10^3/uL (134-434); RBC 3.73 M/mm3 (3.60-5.2); RDW 14.9 % (11.6-15.6); WHITE BLOOD COUNT 4.1 K/mm3 (4.0-10.0)
[2024-02-28 08:40] LABS: EPI CELLS 30 /uL (0-25.1); HYALINE CASTS 0 /uL (0-3.1); URINE APPEARANCE CLEAR; URINE BACTERIA 25 /uL (0-1359); URINE BILIRUBIN NEGATIVE (NEGATIVE); URINE COLOR YELLOW; URINE GLUCOSE (UA) NEGATIVE (NEGATIVE); URINE KETONE NEGATIVE (NEGATIVE); URINE LEUK ESTERASE TRACE (NEGATIVE); URINE NITRITE NEGATIVE (NEGATIVE); URINE PROTEIN NEGATIVE (NEGATIVE); URINE RBC 18 /uL (0-23.9); URINE UROBILINOGEN 0.2 mg/dL (0.2-1.0); URINE WBC 23 /uL (0-25.8)
[2024-02-28 08:57] LABS: CHLORIDE 107 mmol/L (98-107); POTASSIUM 4.1 mmol/L (3.5-5.1); SODIUM 141 mmol/L (136-145)
[2024-02-28 08:59] LABS: CALCIUM 9.3 mg/dL (8.5-10.1)
[2024-02-28 09:00] LABS: ALBUMIN 3.2 g/dl (3.4-5.0); ANION GAP 5 mmol/L (4-13); BLOOD UREA NITROGEN 11.4 mg/dL (7-18); CO2 29 mmol/L (21-32); GLUCOSE,RANDOM 88 mg/dL (74-106)
[2024-02-28 09:02] LABS: BILIRUBIN,DIRECT 0.2 mg/dL (0.0-0.2)
[2024-02-28 09:03] LABS: CREATININE 0.9 mg/dL (0.55-1.3); SGOT/AST 7 U/L (15-37); SGPT/ALT 16 U/L (13-61)
[2024-02-28 09:04] LABS: PHOSPHOROUS 3.4 mg/dL (2.5-4.9)
[2024-02-28 09:05] LABS: BILIRUBIN,TOTAL 0.9 mg/dL (0.2-1); TOT PROT 6.9 g/dl (6.4-8.2)
[2024-02-28 09:06] LABS: ALK PHOS 43 U/L (45-117)
[2024-02-28] MEDS: PEMBROLIZUMAB 200 MG in SODIUM CHLORIDE 100 ML IV ONE (09:55)
[2024-02-28] MEDS: PORTA CATH FLUSH 10 ML IVPUSH PRN (10:50)
[2024-02-28 16:51] VITALS: BP 138/64; PULSE 64; RESP 18; TEMP 98.5
== END 2024-02-28 11:10 | disposition home or self-care (01) ==
LOC: JONCCHEMO 07:43 → J7W 07:53 → JONCCHEMO 11:10
PROVIDERS: ATTEND Internal Medicine Hematology & Oncology
DX: Z51.11 Encounter for antineoplastic chemotherapy (principal); C50.912 Malignant neoplasm of unspecified site of left female breast
CPT/HCPCS: 36415; 80048; 80076; 81003; 83615; 83735; 84100; 84439; 84443; 84481; 85025; 96413; J9271

== ENCOUNTER 2024-03-20 08:46 | Day surgery (SDC) | payer OTHER ==
[2024-03-20 09:44] LABS: BASO % 0.9 % (0-2.0); EOS % 10.6 % (0-4.5); HEMATOCRIT 33.9 % (32.4-45.2); HEMOGLOBIN 11.2 GM/dL (10.7-15.3); MCH 29.9 pg (25.7-33.7); MCHC 32.9 g/dl (32.0-36.0); MEAN CELL VOLUME 90.9 fl (80-96); MEAN PLT VOLUME 8.7 fl (7.5-11.1); MONO % 9.8 % (3.8-10.2); NEUT % 45.7 % (42.8-82.8); PLATELET COUNT 203 10^3/uL (134-434); RBC 3.73 M/mm3 (3.60-5.2); RDW 15.1 % (11.6-15.6); WHITE BLOOD COUNT 3.8 K/mm3 (4.0-10.0)
[2024-03-20 10:06] LABS: ALBUMIN 3.3 g/dl (3.4-5.0)
[2024-03-20 10:08] LABS: CALCIUM 9.4 mg/dL (8.5-10.1)
[2024-03-20 10:09] LABS: BILIRUBIN,DIRECT 0.2 mg/dL (0.0-0.2); BLOOD UREA NITROGEN 12.8 mg/dL (7-18)
[2024-03-20 10:11] LABS: TOT PROT 6.9 g/dl (6.4-8.2)
[2024-03-20 10:12] LABS: CREATININE 0.9 mg/dL (0.55-1.3)
[2024-03-20 10:32] LABS: BILIRUBIN,TOTAL 0.8 mg/dL (0.2-1)
[2024-03-20] MEDS: PEMBROLIZUMAB 200 MG in SODIUM CHLORIDE 100 ML IV ONE (11:20)
[2024-03-20] MEDS: PORTA CATH FLUSH 10 ML IVPUSH PRN (11:55)
[2024-03-20 16:23] VITALS: RESP 16; TEMP 98.2
[2024-03-20 16:26] VITALS: BP 147/60; PULSE 60
== END 2024-03-20 12:00 | disposition home or self-care (01) ==
LOC: JONCCHEMO 08:46 → J7W 08:47 → JONCCHEMO 12:00
PROVIDERS: ATTEND Internal Medicine Hematology & Oncology
DX: Z51.11 Encounter for antineoplastic chemotherapy (principal); C50.912 Malignant neoplasm of unspecified site of left female breast
CPT/HCPCS: 36415; 80048; 80076; 83615; 83735; 84100; 84439; 84443; 84481; 85025; 96413; J9271

== ENCOUNTER 2024-04-10 09:05 | Day surgery (SDC) | payer OTHER ==
[2024-04-10 09:52] LABS: BASO % 0.8 % (0-2.0); EOS % 8.1 % (0-4.5); HEMATOCRIT 33.6 % (32.4-45.2); HEMOGLOBIN 11.2 GM/dL (10.7-15.3); LYMPH % 27.1 % (8-40); MCH 30.1 pg (25.7-33.7); MCHC 33.4 g/dl (32.0-36.0); MEAN CELL VOLUME 90.1 fl (80-96); MEAN PLT VOLUME 8.5 fl (7.5-11.1); MONO % 17.8 % (3.8-10.2); NEUT % 46.2 % (42.8-82.8); PLATELET COUNT 192 10^3/uL (134-434); RBC 3.74 M/mm3 (3.60-5.2); RDW 15.2 % (11.6-15.6); WHITE BLOOD COUNT 4.4 K/mm3 (4.0-10.0)
[2024-04-10 10:37] LABS: CHLORIDE 106 mmol/L (98-107); POTASSIUM 4.1 mmol/L (3.5-5.1); SODIUM 140 mmol/L (136-145)
[2024-04-10 10:41] LABS: ALBUMIN 3.4 g/dl (3.4-5.0); ANION GAP 5 mmol/L (4-13); BLOOD UREA NITROGEN 13.5 mg/dL (7-18); CALCIUM 9.6 mg/dL (8.5-10.1); CO2 29 mmol/L (21-32); GLUCOSE,RANDOM 123 mg/dL (74-106); MAGNESIUM 1.8 mg/dL (1.8-2.4)
[2024-04-10 10:43] LABS: BILIRUBIN,DIRECT 0.2 mg/dL (0.0-0.2); SGOT/AST < 3 U/L (15-37); SGPT/ALT 17 U/L (13-61)
[2024-04-10 10:44] LABS: BILIRUBIN,TOTAL 0.7 mg/dL (0.2-1); CREATININE 0.9 mg/dL (0.55-1.3)
[2024-04-10 10:45] LABS: TOT PROT 6.9 g/dl (6.4-8.2)
[2024-04-10 10:46] LABS: ALK PHOS 46 U/L (45-117)
[2024-04-10] MEDS: PEMBROLIZUMAB 200 MG in SODIUM CHLORIDE 100 ML IV ONE (11:21)
[2024-04-10 11:31] VITALS: RESP 18; TEMP 98
[2024-04-10 11:45] LABS: LDH 139 U/L (84-246)
[2024-04-10] MEDS: PORTA CATH FLUSH 10 ML IVPUSH PRN (12:15)
[2024-04-10 12:17] VITALS: BP 123/69; PULSE 73
== END 2024-04-10 12:30 | disposition home or self-care (01) ==
LOC: JONCCHEMO 09:05
PROVIDERS: ATTEND Internal Medicine Hematology & Oncology
DX: Z51.11 Encounter for antineoplastic chemotherapy (principal); C50.912 Malignant neoplasm of unspecified site of left female breast
CPT/HCPCS: 36415; 80048; 80076; 83615; 83735; 84100; 84439; 84443; 84481; 85025; 96413; J9271